=== PATIENT | female | born 1965 | race Caucasian/White ===

== ENCOUNTER 2020-11-13 17:59 | Observation (INO) | payer OTHER, SELFPAY ==
[2020-11-13] VITALS (8 sets, daily range): BP systolic 109–133; BP diastolic 64–80; PULSE 88–107; RESP 13–27; TEMP 36.7–37.6; O2SAT 92–96; BMI 29.2
--- NOTE | ~2020-11-13 | CT_ITS ---
EXAMINATION: CT CHEST WITH CONTRAST CLINICAL INFORMATION: Lung mass COMPARISON: Radiograph from 11/13/2020 TECHNIQUE: Multidetector volumetric CT imaging of the chest was obtained after the administration of 65 mL of Omnipaque 350 intravenous contrast without immediate adverse reactions. Axial MIP volume rendering provided. Sagittal and coronal reformatted images were obtained. This CT examination was performed using dose optimization techniques as appropriate, variously including the following: *Automated exposure control *Adjustment of mA and/or kV according to patient size (this includes techniques or standardized protocols for targeted exams where dose is matched to indication/reason for exam; i.e. 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 LUNGS: The central airways are patent. Mild centrilobular and paraseptal emphysema. There is pleural thickening with pleural calcifications, consistent with plaques along the left hemithorax. No consolidation. No suspicious pulmonary nodule. Bilateral atelectasis at the lung bases. No pleural effusion or pneumothorax. MEDIASTINUM: Normal heart size. Coronary artery calcification. No pericardial effusion. No mediastinal lymphadenopathy. AXILLA: No lymphadenopathy. UPPER ABDOMEN: Cholecystectomy. OSSEOUS STRUCTURES: Degenerative changes throughout the spine with multilevel thoracic vertebral body height loss. CT/CT chest w con IMPRESSION: Calcified and noncalcified pleural plaques, most prominently along the left hemithorax. No parenchymal mass. Mild emphysema.
--- NOTE | ~2020-11-13 | XR_ITS ---
EXAMINATION: XR CHEST CLINICAL INFORMATION: Shortness of breath. COMPARISON: None TECHNIQUE: Frontal view of the chest was obtained. FINDINGS: Asymmetric pleural-based opacity is noted at left mid lung field with asymmetric elevated left hemidiaphragm and mild blunting of the left lateral CP angle, may represent pleural-based disease. No prior studies are available for comparison. Cardiac mediastinal silhouette is within normal limits. Note is made of asymmetric prominence of the left hilar, perihilar region. XR/XR chest 1V IMPRESSION: Abnormal chest radiograph. No prior studies for comparison. Nonspecific pleural-based mass, asymmetric fullness of the left hilum and mild blunting of the left lateral CP angles are present within the left hemithorax, not optimally characterized.
--- NOTE | 2020-11-13 18:55 | ECG_ITS ---
Test Reason : SOB Blood Pressure : / mmHG Vent. Rate : 102 BPM Atrial Rate : 102 BPM P-R Int : 130 ms QRS Dur : 070 ms QT Int : 342 ms P-R-T Axes : 056 031 076 degrees QTc Int : 445 ms Sinus tachycardia Nonspecific T wave abnormality Abnormal ECG No previous ECGs available Referred By: Kristine Villalobos Electronically Signed By:ELIE MALHOTRA
--- NOTE | 2020-11-13 19:01 | ED_ITS ---
HPI - SOB/Dyspnea General Chief Complaint: Dyspnea Stated Complaint: sob Time Seen by Provider: 11/13/20 18:54 Source: patient Mode of arrival: ambulatory Limitations: no limitations History of Present Illness HPI Narrative: 55-year-old female came in for evaluation of shortness of breath. 55-year-old female former smoker known history of COPD came in for evaluation of shortness of breath and tightness in her chest for the past 7 days, patient has been using her bronchodilator at home with no relief for symptoms, patient never been hospitalized or intubated for COPD exacerbation. Patient also been feeling fever, headache, generalized weakness. No photophobia, no neck stiffness. Related Data Home Medications Medication Instructions Recorded Confirmed ProAir HFA 90 mcg PO 11/14/20 Trelegy Ellipta 11/14/20 budesonide-formoterol HFA 160 1 puff PO BID 11/14/20 11/14/20 mcg-4.5 mcg/actuation aerosol inhaler (Symbicort) darifenacin 15 mg tablet,extended mg PO 11/14/20 release 24 hr fluoxetine 20 mg capsule 1 cap PO DAILY 11/14/20 11/14/20 fluoxetine 40 mg capsule 1 cap PO DAILY 11/14/20 11/14/20 fluticasone propionate 50 1 spray INTRANASAL DAILY 11/14/20 11/14/20 mcg/actuation nasal spray,suspension folic acid 1 mg tablet 1 tab PO DAILY 11/14/20 11/14/20 gabapentin 400 mg capsule 1 cap PO TID 11/14/20 11/14/20 hydroxyzine pamoate 50 mg capsule mg PO 11/14/20 ibuprofen 800 mg tablet 1 tab PO Q8H 11/14/20 11/14/20 ipratropium-albuterol PO QID PRN 11/14/20 lorazepam 1 mg tablet 1 mg PO TID 11/14/20 11/14/20 meloxicam 15 mg tablet 1 tab PO DAILY 11/14/20 11/14/20 mirtazapine 45 mg tablet 1 tab PO BEDTIME 11/14/20 11/14/20 nicotine 21 mg/24 hr daily 1 patch TOPICAL DAILY 11/14/20 11/14/20 transdermal patch olanzapine 10 mg tablet 1 tab PO QAM 11/14/20 11/14/20 omeprazole 20 mg capsule,delayed 1 cap PO DAILY 11/14/20 11/14/20 release propranolol 10 mg tablet 1 tab PO BID 11/14/20 11/14/20 tizanidine 4 mg tablet 1 tab PO QID PRN 11/14/20 11/14/20 topiramate 50 mg tablet (Topamax) 1 tab PO DAILY 11/14/20 11/14/20 vitamin B complex-vit B12 11/14/20 Previous Rx's Medication Instructions Recorded doxycycline hyclate 100 mg tablet 100 mg PO Q12H #6 tab 11/16/20 prednisone 10 mg tablet See Rx Instructions .ROUTE 11/16/20 .COMPLEX #20 tab Allergies Allergy/AdvReac Type Severity Reaction Status Date / Time fish derived [fish] Allergy Hives Verified 11/13/20 18:05 Review of Systems Review of Systems: All other systems are reviewed and are negative Constitutional: Reports as per HPI and Reports no additional constitutional complaints Eyes: Reports as per HPI and Reports no additional eye complaints Reports system reviewed and no additional complaints, except as documented Cardiovascular: Reports as per HPI and Reports no additional cardiovascular complaints Respiratory: Reports as per HPI and Reports no additional respiratory complaints Gastrointestinal: Reports as per HPI and Reports no additional gastrointestinal complaints Genitourinary: Reports no additional female genitourinary complaints Musculoskeletal: Reports no additional musculoskeletal complaints Skin/Breast: Reports system reviewed and no additional complaints, except as docu Psychiatric: Reports no additional psychiatric complaints Endocrine: Reports no additional endocrine complaints Hematologic/Lymphatic: Reports no additional hematologic/lymphatic complaints Allergic/Immunologic: Reports no additional allergic/immunologic complaints Reports system reviewed and no additional complaints, except as documented and Reports Abnormal speech present [facility] Past Medical History Medical History (Updated 11/16/20 @ 12:22 by Wilberto Weiss MD) Asthma COPD (chronic obstructive pulmonary disease) 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 Surgical History H/O: hysterectomy History of appendectomy History of cholecystectomy Social History Social History Alcohol intake: former Patient Tobacco Use Status: Former Tobacco user Use of substances other than those prescribed or required for medical reasons: No Currently Displaying Signs/Symptoms of Drug Intoxication Withdrawal: No Advance Directives: No Advance Directives Information Provided: No Do you have thoughts of harming others: None Do you have a plan to hurt others: No Plan service: No Current occupational status: unemployed and disabled Physical Exam Vital Signs: Vital Signs: Last Vital Signs Temp 97.2 F 11/16/20 08:00 Pulse 85 11/16/20 10:13 Resp 19 11/16/20 08:00 BP 191/92 H 11/16/20 08:23 Pulse Ox 98 11/16/20 08:00 Body Mass Index 29.2 Vital signs have been reviewed as appeared to be correct. Blood pressure normal. Heart rate normal. Respiration rate normal. Temperature normal. Oxygen saturation normal. Appearance: Alert. Oriented X3. No acute distress. Head: Normal external exam. Normocephalic. Atraumatic. No Rodriguez signs noted. No raccoon eyes noted Eyes: PERRLA. EOMI. Conjunctiva and sclera normal. Eyelids normal. ENT: TM's Normal. Pharynx normal. Uvula midline. Moist mucous membranes. No trismus noted. No drooling noted. No muffled voice noted. Neck: Normal inspection. Neck supple. FROM. No adenopathy. Thyroid Normal. No meningeal signs. No neck mass noted. CVS: Normal heart rate and rhythm. Heart sound normal. No murmurs noted. Pulses normal throughout. Respiratory: Mildrespiratory distress. Painless inspiration. Breath sounds normal. Diffuse expiratory wheezing with prolonged expiration, patient is able to talk in full sentences, Chest nontender. No accessory muscle usage noted or decreased air movement noted. Abdomen: Soft and nontender. Bowel sounds normal in all 4 quadrants. No distention noted. No organomegaly noted. No visible injury noted. Back: No CVA tenderness. Full range of motion noted. Skin: Skin warm and dry. Normal skin color. Normal skin turgor. No rashes/lesions/lacerations noted. Extremities: No lower extremity edema. Extremities exhibit normal range of motion. Extremities nontender. Neuro: Oriented X 3. Cranial nerve exam: II-XII are grossly intact No motor deficit. No sensory deficit. Reflexes normal. Course Course Course Narrative: 55-year-old female with history of COPD came in with COPD exacerbation, patient initially came in with acute respiratory distress, patient was given bronchodilator and Solu-Medrol and magnesium, patient was covered with 1 dose of Zithromax. Will admit the patient for further bronchodilator therapy. MDM - SOB/Dyspnea Lab Data Attestation: I reviewed the patient's lab results. Result diagrams: 11/15/20 09:28 11/15/20 09:28 Labs: Lab Results 11/13/20 11/13/20 11/13/20 Range/Units 19:20 19:20 19:20 WBC 12.0 H (4.8-10.8) X10*3/uL RBC 3.56 L (4.20-5.50) X10*6/uL Hgb 11.2 L (12.0-16.0) g/dl Hct 31.8 L (37-47) % MCV 89.3 (80-98) fL MCH 31.5 (27.0-33.0) pg MCHC 35.2 H (31.0-35.0) g/dl RDW 13.2 (11.0-16.0) % Plt Count 358 (160-400) X10*3/uL MPV 9.7 (9.4-12.3) fL Immature Gran % (Auto) 1.6 H (0.0-0.4) % Neut % (Auto) 84.1 H (45-73) % Lymph % (Auto) 9.3 L (20-40) % [place] % (Auto) 4.9 (2-11) % Eos % (Auto) 0.0 (0-4) % Baso % (Auto) 0.1 (0-2) % Lymph # (Auto) 1.1 L (1.2-4.9) X10*3/uL [place] # (Auto) 0.6 (0.1-1.2) X10*3/uL Eos # (Auto) 0.0 (0.0-0.4) X10*3/uL Baso # (Auto) 0.0 (0.0-0.2) X10*3/uL Abs Immat Gran (auto) 0.19 H (0.00-0.03) X10*3/uL Absolute Neuts (auto) 10.1 H (2.0-8.3) X10*3/uL Absolute Nucleated RBC 0.000 (0.0-0.012) X10*3/uL Nucleated RBC % (auto) 0.0 (0.0-0.2) /100WBC D-Dimer NG/ML O2 Saturation % ABG pH at Pt Temp (7.35-7.45) ABG pH (Temp Correct) (7.35-7.45) ABG pCO2 at Pt Temp (32-45) mmHg ABG pCO2 (Temp Corrct (32-45) mmHg ABG pO2 at Pt Temp (83-108) mmHg ABG pO2 (Temp Correct (83-108) ABG HCO3 (22-26) mmol/L ABG Base Excess (Actual) mmol/L Sodium 142 (135-145) mmol/L Potassium 4.0 (3.3-5.1) mmol/L Chloride 107 (96-108) mmol/L Carbon Dioxide 24 (22-29) mmol/L Anion Gap 15 (12-20) BUN 16 (9-16) mg/dL Creatinine 0.98 (0.5-1.4) mg/dL Estim Creat Clear Calc 59.1 Estimated GFR 58 Random Glucose 206 H (60-115) mg/dL Lactic Acid (0.5-2.0) mmol/L Lactic Acid Fup @ 2Hr (0.5-2.0) mmol/L Calcium 9.2 (8.4-10.2) mg/dL Total Bilirubin 0.2 (0.0-1.0) mg/dL Direct Bilirubin < 0.2 (0.0-0.5) mg/dL AST 15 (5-31) U/L ALT 21 (0-31) U/L Alkaline Phosphatase 115 (39-117) U/L Troponin I High Sens (<3.5-17.0) ng/L B-Natriuretic Peptide (<100) pg/mL Total Protein 6.6 (6.5-8.0) g/dL Albumin 3.9 (3.5-5.0) g/dL Lipase 48 (8-78) U/L Urine Color Urine Appearance Urine pH (5.0-8.0) Ur Specific [place] (1.005-1.025) Urine Protein (NEG-TRACE) MG/DL Urine Glucose (UA) (NEG) MG/DL Urine Ketones (NEG) MG/DL Urine Blood (NEG) Urine Nitrite (NEG) Ur Leukocyte Esterase (NEG) COVID-19 (LYNDSAY) (Negative) COVID-19 Clin Com 11/13/20 11/13/20 11/13/20 Range/Units 19:20 19:20 19:20 WBC (4.8-10.8) X10*3/uL RBC (4.20-5.50) X10*6/uL Hgb (12.0-16.0) g/dl Hct (37-47) % MCV (80-98) fL MCH (27.0-33.0) pg MCHC (31.0-35.0) g/dl RDW (11.0-16.0) % Plt Count (160-400) X10*3/uL MPV (9.4-12.3) fL Immature Gran % (Auto) (0.0-0.4) % Neut % (Auto) (45-73) % Lymph % (Auto) (20-40) % [place]ois % (Auto) (2-11) % Eos % (Auto) (0-4) % Baso % (Auto) (0-2) % Lymph # (Auto) (1.2-4.9) X10*3/uL [place] # (Auto) (0.1-1.2) X10*3/uL Eos # (Auto) (0.0-0.4) X10*3/uL Baso # (Auto) (0.0-0.2) X10*3/uL Abs Immat Gran (auto) (0.00-0.03) X10*3/uL Absolute Neuts (auto) (2.0-8.3) X10*3/uL Absolute Nucleated RBC (0.0-0.012) X10*3/uL Nucleated RBC % (auto) (0.0-0.2) /100WBC D-Dimer NG/ML O2 Saturation % ABG pH at Pt Temp (7.35-7.45) ABG pH (Temp Correct) (7.35-7.45) ABG pCO2 at Pt Temp (32-45) mmHg ABG pCO2 (Temp Corrct (32-45) mmHg ABG pO2 at Pt Temp (83-108) mmHg ABG pO2 (Temp Correct (83-108) ABG HCO3 (22-26) mmol/L ABG Base Excess (Actual) mmol/L Sodium (135-145) mmol/L Potassium (3.3-5.1) mmol/L Chloride (96-108) mmol/L Carbon Dioxide (22-29) mmol/L Anion Gap (12-20) BUN (9-16) mg/dL Creatinine (0.5-1.4) mg/dL Estim Creat Clear Calc Estimated GFR Random Glucose (60-115) mg/dL Lactic Acid 2.1 H* (0.5-2.0) mmol/L Lactic Acid Fup @ 2Hr (0.5-2.0) mmol/L Calcium (8.4-10.2) mg/dL Total Bilirubin (0.0-1.0) mg/dL Direct Bilirubin (0.0-0.5) mg/dL AST (5-31) U/L ALT (0-31) U/L Alkaline Phosphatase (39-117) U/L Troponin I High Sens < 3.5 (<3.5-17.0) ng/L B-Natriuretic Peptide 16 (<100) pg/mL Total Protein (6.5-8.0) g/dL Albumin (3.5-5.0) g/dL Lipase (8-78) U/L Urine Color Urine Appearance Urine pH (5.0-8.0) Ur Specific [place] (1.005-1.025) Urine Protein (NEG-TRACE) MG/DL Urine Glucose (UA) (NEG) MG/DL Urine Ketones (NEG) MG/DL Urine Blood (NEG) Urine Nitrite (NEG) Ur Leukocyte Esterase (NEG) COVID-19 (LYNDSAY) Negative (Negative) COVID-19 Clin Com See Note 11/13/20 11/13/20 11/13/20 Range/Units 19:44 20:29 20:53 WBC (4.8-10.8) X10*3/uL RBC (4.20-5.50) X10*6/uL Hgb (12.0-16.0) g/dl Hct (37-47) % MCV (80-98) fL MCH (27.0-33.0) pg MCHC (31.0-35.0) g/dl RDW (11.0-16.0) % Plt Count (160-400) X10*3/uL MPV (9.4-12.3) fL Immature Gran % (Auto) (0.0-0.4) % Neut % (Auto) (45-73) % Lymph % (Auto) (20-40) % [place]ois % (Auto) (2-11) % Eos % (Auto) (0-4) % Baso % (Auto) (0-2) % Lymph # (Auto) (1.2-4.9) X10*3/uL [place] # (Auto) (0.1-1.2) X10*3/uL Eos # (Auto) (0.0-0.4) X10*3/uL Baso # (Auto) (0.0-0.2) X10*3/uL Abs Immat Gran (auto) (0.00-0.03) X10*3/uL Absolute Neuts (auto) (2.0-8.3) X10*3/uL Absolute Nucleated RBC (0.0-0.012) X10*3/uL Nucleated RBC % (auto) (0.0-0.2) /100WBC D-Dimer < 200 NG/ML O2 Saturation 96.0 % ABG pH at Pt Temp 7.44 (7.35-7.45) ABG pH (Temp Correct) 7.43 (7.35-7.45) ABG pCO2 at Pt Temp 36 (32-45) mmHg ABG pCO2 (Temp Corrct 37 (32-45) mmHg ABG pO2 at Pt Temp 84 (83-108) mmHg ABG pO2 (Temp Correct 87 (83-108) ABG HCO3 25 (22-26) mmol/L ABG Base Excess (Actual) 1.4 mmol/L Sodium (135-145) mmol/L Potassium (3.3-5.1) mmol/L Chloride (96-108) mmol/L Carbon Dioxide (22-29) mmol/L Anion Gap (12-20) BUN (9-16) mg/dL Creatinine (0.5-1.4) mg/dL Estim Creat Clear Calc Estimated GFR Random Glucose (60-115) mg/dL Lactic Acid (0.5-2.0) mmol/L Lactic Acid Fup @ 2Hr (0.5-2.0) mmol/L Calcium (8.4-10.2) mg/dL Total Bilirubin (0.0-1.0) mg/dL Direct Bilirubin (0.0-0.5) mg/dL AST (5-31) U/L ALT (0-31) U/L Alkaline Phosphatase (39-117) U/L Troponin I High Sens (<3.5-17.0) ng/L B-Natriuretic Peptide (<100) pg/mL Total Protein (6.5-8.0) g/dL Albumin (3.5-5.0) g/dL Lipase (8-78) U/L Urine Color YELLOW Urine Appearance CLEAR Urine pH 6.0 (5.0-8.0) Ur Specific [place] 1.015 (1.005-1.025) Urine Protein NEG (NEG-TRACE) MG/DL Urine Glucose (UA) NEG (NEG) MG/DL Urine Ketones NEG (NEG) MG/DL Urine Blood NEG (NEG) Urine Nitrite NEG (NEG) Ur Leukocyte Esterase NEG (NEG) COVID-19 (LYNDSAY) (Negative) COVID-19 Clin Com 11/13/20 Range/Units 21:45 WBC (4.8-10.8) X10*3/uL RBC (4.20-5.50) X10*6/uL Hgb (12.0-16.0) g/dl Hct (37-47) % MCV (80-98) fL MCH (27.0-33.0) pg MCHC (31.0-35.0) g/dl RDW (11.0-16.0) % Plt Count (160-400) X10*3/uL MPV (9.4-12.3) fL Immature Gran % (Auto) (0.0-0.4) % Neut % (Auto) (45-73) % Lymph % (Auto) (20-40) % [place] % (Auto) (2-11) % Eos % (Auto) (0-4) % Baso % (Auto) (0-2) % Lymph # (Auto) (1.2-4.9) X10*3/uL [place] # (Auto) (0.1-1.2) X10*3/uL Eos # (Auto) (0.0-0.4) X10*3/uL Baso # (Auto) (0.0-0.2) X10*3/uL Abs Immat Gran (auto) (0.00-0.03) X10*3/uL Absolute Neuts (auto) (2.0-8.3) X10*3/uL Absolute Nucleated RBC (0.0-0.012) X10*3/uL Nucleated RBC % (auto) (0.0-0.2) /100WBC D-Dimer NG/ML O2 Saturation % ABG pH at Pt Temp (7.35-7.45) ABG pH (Temp Correct) (7.35-7.45) ABG pCO2 at Pt Temp (32-45) mmHg ABG pCO2 (Temp Corrct (32-45) mmHg ABG pO2 at Pt Temp (83-108) mmHg ABG pO2 (Temp Correct (83-108) ABG HCO3 (22-26) mmol/L ABG Base Excess (Actual) mmol/L Sodium (135-145) mmol/L Potassium (3.3-5.1) mmol/L Chloride (96-108) mmol/L Carbon Dioxide (22-29) mmol/L Anion Gap (12-20) BUN (9-16) mg/dL Creatinine (0.5-1.4) mg/dL Estim Creat Clear Calc Estimated GFR Random Glucose (60-115) mg/dL Lactic Acid (0.5-2.0) mmol/L Lactic Acid Fup @ 2Hr 2.2 H* (0.5-2.0) mmol/L Calcium (8.4-10.2) mg/dL Total Bilirubin (0.0-1.0) mg/dL Direct Bilirubin (0.0-0.5) mg/dL AST (5-31) U/L ALT (0-31) U/L Alkaline Phosphatase (39-117) U/L Troponin I High Sens (<3.5-17.0) ng/L B-Natriuretic Peptide (<100) pg/mL Total Protein (6.5-8.0) g/dL Albumin (3.5-5.0) g/dL Lipase (8-78) U/L Urine Color Urine Appearance Urine pH (5.0-8.0) Ur Specific [place] (1.005-1.025) Urine Protein (NEG-TRACE) MG/DL Urine Glucose (UA) (NEG) MG/DL Urine Ketones (NEG) MG/DL Urine Blood (NEG) Urine Nitrite (NEG) Ur Leukocyte Esterase (NEG) COVID-19 (LYNDSAY) (Negative) COVID-19 Clin Com ABG Data Attestation: I personally reviewed and interpreted this ABG as follows: Imaging Data Chest x-ray: Radiologist's impression: Abnormal chest radiograph. No prior studies for comparison. Nonspecific pleural-based mass, asymmetric fullness of the left hilum and mild blunting of the left lateral CP angles are present within the left hemithorax, not optimally characterized. ? ECG Data Interpretation: Sinus tachycardia at 102 beats per minute, normal axis deviation, normal intervals, no ST-T changes. Discharge Plan Discharge Clinical Impression: Acute exacerbation of chronic obstructive airways disease Patient Disposition: Admitted As Inpatient Interventions: Admission Worksheet (ED) Last Done: 11/14/20 03:08 Discharge Date/Time: 11/14/20 03:00
[2020-11-13] MEDS: Albuterol Sulfate (0.083%) 2.5 MG/3 ML VIAL.NEB 5 MG INHALE (19:27)
[2020-11-13] MEDS: Albuterol/Iprat 2.5/0.5MG 3 ML AMPUL.NEB INHALE (19:27)
[2020-11-13 19:32] LABS: MANUAL DIFF FLAG NO
[2020-11-13] MEDS: methylPREDNISolone Sod Succ 125 MG/2 ML VIAL IVPUSH (19:32)
[2020-11-13] MEDS: Magnesium Sulfate/H2O 2 GM/50 ML PIGGYBACK IV (19:32)
[2020-11-13 19:40] LABS: Basophils Percent Auto 0.1 % (0-2); Hematocrit 31.8 % (37-47); Hemoglobin 11.2 g/dl (12.0-16.0); Imm Gran Abs Auto 0.19 X10*3/uL (0.00-0.03); Imm Gran Pct Auto 1.6 % (0.0-0.4); Lymphocytes Absolute Auto 1.1 X10*3/uL (1.2-4.9); Lymphocytes Percent Auto 9.3 % (20-40); Mean Corpuscular HGB Conc 35.2 g/dl (31.0-35.0); Mean Corpuscular Hemoglobin 31.5 pg (27.0-33.0); Mean Corpuscular Volume 89.3 fL (80-98); Mean Platelet Volume 9.7 fL (9.4-12.3); Monocytes Absolute Auto 0.6 X10*3/uL (0.1-1.2); Monocytes Percent Auto 4.9 % (2-11); Neutrophils Absolute Auto 10.1 X10*3/uL (2.0-8.3); Neutrophils Percent Auto 84.1 % (45-73); Platelet Count 358 X10*3/uL (160-400); Red Blood Count 3.56 X10*6/uL (4.20-5.50); Red Cell Distribution Width 13.2 % (11.0-16.0)
[2020-11-13 19:48] LABS: ABG Refer to POC result
[2020-11-13 19:50] LABS: ABG Base Excess 1.4 mmol/L; ABG HCO3 25 mmol/L (22-26); ABG pCO2 36 mmHg (32-45); ABG pCO2 TC 37 mmHg (32-45); ABG pH 7.44 (7.35-7.45); ABG pH TC 7.43 (7.35-7.45); ABG pO2 84 mmHg (83-108); ABG pO2 TC 87 (83-108)
[2020-11-13 19:50] LABS: COVID-19 Test Negative (Negative); IDNOW Serial# 9DD0AD1C
[2020-11-13 20:01] LABS: Lactic Acid 2.1 mmol/L (0.5-2.0)
[2020-11-13 20:12] LABS: Anion Gap 15 (12-20); Blood Urea Nitrogen 16 mg/dL (9-16); Calcium 9.2 mg/dL (8.4-10.2); Carbon Dioxide 24 mmol/L (22-29); Chloride 107 mmol/L (96-108); Creatinine Clr Calc Pharmacy 59.1; Estimated Glomerular Filt Rate 58; Glucose Random 206 mg/dL (60-115); Sodium 142 mmol/L (135-145)
[2020-11-13 20:15] LABS: Alanine Aminotransferase 21 U/L (0-31); Albumin Level 3.9 g/dL (3.5-5.0); Alkaline Phosphatase 115 U/L (39-117); Aspartate Amino Transferase 15 U/L (5-31); Bilirubin Direct < 0.2 mg/dL (0.0-0.5); Bilirubin Total 0.2 mg/dL (0.0-1.0); Lipase 48 U/L (8-78); Total Protein 6.6 g/dL (6.5-8.0)
[2020-11-13 20:18] LABS: B Type Natriuretic Peptide 16 pg/mL (<100); Troponin-I High Sensitivity < 3.5 ng/L (<3.5-17.0)
[2020-11-13 20:44] LABS: D Dimer < 200 NG/ML
[2020-11-13] MEDS: Acetaminophen 325 MG TABLET 650 MG PO (20:54)
[2020-11-13 21:02] LABS: Appearance Urine CLEAR; Color Urine YELLOW; Glucose Urine UA NEG (NEG); Leukocyte Esterase Urine NEG (NEG); Nitrite Urine NEG (NEG); Specific Gravity - Urine 1.015 (1.005-1.025); Urine Blood NEG (NEG); Urine Ketones NEG (NEG); Urine Protein NEG (NEG-TRACE)
[2020-11-13 21:27] LABS: Reflex Lactate? Lactic Acid Added
[2020-11-13] MEDS: Azithromycin 500 MG in 0.9 % Sodium Chloride 250 ML 125 MG IV (21:33)
[2020-11-13] MEDS: 0.9 % Sodium Chloride 1,000 ML 999 ML IVCONT (21:35)
--- NOTE | 2020-11-13 21:38 | PC.NURSE ---
Plan to admit pt to the floor, she is aware of this. resting in bed. Abx started.
[2020-11-13 22:12] LABS: ~Lactic Acid-LAB USE ONLY 2.2 mmol/L (0.5-2.0)
--- NOTE | 2020-11-13 22:48 | PM.IMHP ---
History of Present Illness Date of Service: 11/13/20 Chief Complaint: Shortness of breath 55-year-old female with history of asthma and COPD, normally on room air, who presented with shortness of breath and wheezing. History is from the patient and from ED notes. Patient endorsed that for the past 7 days, she has been dealing with worsening shortness of breath, wheezing, coughing fits which produced chest pain, headache, and times were her eyes ?blank out . She has been using her nebulizers, but it does not seem to be getting better. She called her primary care physician, who just endorse that she should continue using her nebulizers. She has been having lack of sleep because of breathing issues. Otherwise, she denies fever, chills, nausea, vomiting, abdominal pain or diarrhea. Subsequently, she came to the ED. In the ED, vital signs were significant for tachypnea with a respiratory rate of 27, and a heart rate as high as 107, otherwise she was satting well on room air. Pertinent labs include leukocytosis with a WBC of 12.0, lactic acid at 2.1, random glucose 206. Her COVID was negative, and an ABG was normal. Chest x-ray revealed the following: Abnormal chest radiograph, no prior studies for comparison, nonspecific pleural base mass, asymmetric fullness of the left hilum and mild blunting of the left lateral costophrenic angles are present within the left hemithorax, not optimally characterized. In the ED, the patient received Solu-Medrol, magnesium sulfate, and DuoNebs. She is being admitted for the following: COPD exacerbation, respiratory distress, lactic acidosis, leukocytosis, abnormal chest x-ray with pleural based mass. Review of Systems Constitutional: Constitutional: Denies chills, Denies fatigue, Denies fever(s), Reports headache(s), Denies weakness and Denies weight loss Eyes: Eyes: Denies blurry vision, Denies change in vision, Denies diplopia and Denies loss of vision ENT: Denies dysphagia, Denies vertigo, Denies dizziness, Reports headache(s), Denies hearing loss, Denies lip swelling and Denies sore throat Cardiovascular: Cardiovascular: Reports chest pain (From coughing), Denies leg edema, Denies lightheadedness, Denies palpitations and Reports dyspnea Respiratory: Respiratory: Reports cough, Reports dyspnea and Reports wheezing Gastrointestinal: Gastrointestinal: Denies coffee ground emesis, Denies constipation, Denies dysphagia, Denies diarrhea, Denies nausea and Denies vomiting Genitourinary: Genitourinary: Denies dysuria Musculoskeletal: Musculoskeletal: Denies arthralgias, Denies muscle weakness, Denies numbness and Denies tingling Integumentary/Breasts: Skin/Breast: Denies bleeding lesions, Denies new lesions and Denies rash Neurologic: Denies vertigo, Denies dizziness, Reports headache(s), Denies loss of vision, Denies numbness, Denies tingling and Denies weakness Psychiatric: Psychiatric: Denies anxiety and Denies depression Endocrine: Endocrine: Denies cold intolerance, Denies fatigue, Denies heat intolerance and Denies palpitations Hematologic/Lymphatic: Hematologic/Lymphatic: Denies easy bleeding, Denies easy bruising and Denies lymphadenopathy Allergic/Immunologic: Allergic/Immunologic: Denies lip swelling and Reports wheezing [facility] Medical History (Updated 11/13/20 @ 23:01 by Hitesh Wood MD) Asthma COPD (chronic obstructive pulmonary disease) Pertinent family history: In mother and father were both healthy, no chronic medical conditions Surgical History H/O: hysterectomy History of appendectomy History of cholecystectomy Social History Alcohol intake: former Patient Tobacco Use Status: Former Tobacco user Use of substances other than those prescribed or required for medical reasons: No Advance Directives: No Advance Directives Information Provided: No Meds Allergies Allergy/AdvReac Type Severity Reaction Status Date / Time fish derived [fish] Allergy Hives Verified 11/13/20 18:05 Active Medications: Current Medications Generic Name Dose Route Start Last Admin Trade Name Freq PRN Reason Stop Dose Admin Acetaminophen 650 mg 11/13/20 22:44 Acetaminophen 325 Mg Tablet PO Q6H PRN Pain, Mild (Pain Scale 1-3) Azithromycin 500 mg/ Sodium 250 mls @ 125 mls/hr 11/13/20 21:13 11/13/20 21:33 Chloride IV 11/13/20 23:12 125 mls/hr ONCE ONE Administration Ceftriaxone Sodium 1 gm/ 50 mls @ 100 mls/hr 11/13/20 22:27 Sodium Chloride IV 11/13/20 22:56 ONCE ONE Methylprednisolone Sodium Succinate 60 mg 11/14/20 08:00 Methylprednisolone Sod Succ 125 Mg/2 Ml Vial IVPUSH Q6H [facility] Sodium Chloride 3 ml 11/14/20 00:00 0.9 % Sodium Chloride Flush 3 Ml Syringe IVFLUSH QSHIFT MARTINEZ Physical Exam Vital Signs and Narrative: Vital Signs: Last Vital Signs Temp 98.3 F 11/13/20 22:37 Pulse 88 11/13/20 22:37 Resp 13 11/13/20 22:37 BP 116/64 11/13/20 20:20 Pulse Ox 95 11/13/20 22:37 Body Mass Index 29.2 Const: General: well developed, alert and other (In mild respiratory distress) HENMT: Face and sinus: Yes normal facial exam and Yes face symmetric Mouth: Normal oral and palatal mucosa present and moist mucous membranes Throat: Yes posterior oropharynx normal and Yes tonsils normal Eyes: General: appearance normal, both eyes and all related structures Alignment and Position: alignment normal and position normal Sclerae: sclerae normal Pupils: Equal, round and reactive pupils present EOM: EOMs intact bilaterally Neck: Yes normal visual inspection, Yes full ROM and Yes no lymphadenopathy Lymphatic: no lymphadenopathy noted Resp: Effort & Inspection: not able to speak in complete sentences, audible wheezes, labored and respiratory distress Auscultation: no crackles, no rales, no rhonchi and wheezes (Marked) Cardio: Rate: regular rate Rhythm: regular rhythm Heart sounds: S1 normal heart sound present, S2 normal heart sound present, no murmurs and no rubs GI: Inspection: No distended Palpation (GI): Soft to palpation and nontender Percussion: No tympanic to percussion Auscultation: normal bowel sounds Skin: Rashes: no rashes Trauma: no lacerations or abrasions Wounds: no wounds Neuro: Cranial nerves: Yes CN's II-XII intact bilaterally, Yes Equal, round and reactive pupils present and Yes Bilaterally intact EOM present Extrem: General: Yes full ROM and Yes no pedal edema Psych: Appearance: grossly normal Mental Status: mental status grossly normal Speech and movement: Normal speech and movement present Affect: normal affect Thought process: Normal thought process present Results Labs CBC and Chem 7: 11/13/20 19:20 08/21/21 19:20 Labs: Laboratory Results - last 24 hr 11/13/20 11/13/20 11/13/20 19:20 19:20 19:20 MCV 89.3 MCH 31.5 MCHC 35.2 H RDW 13.2 Plt Count 358 MPV 9.7 Immature Gran % (Auto) 1.6 H Neut % (Auto) 84.1 H Lymph % (Auto) 9.3 L [place] % (Auto) 4.9 Eos % (Auto) 0.0 Baso % (Auto) 0.1 Lymph # (Auto) 1.1 L [place] # (Auto) 0.6 Eos # (Auto) 0.0 Baso # (Auto) 0.0 Abs Immat Gran (auto) 0.19 H Absolute Neuts (auto) 10.1 H Absolute Nucleated RBC 0.000 Nucleated RBC % (auto) 0.0 D-Dimer O2 Saturation ABG pH at Pt Temp ABG pH (Temp Correct) ABG pCO2 at Pt Temp ABG pCO2 (Temp Corrct ABG pO2 at Pt Temp ABG pO2 (Temp Correct ABG HCO3 ABG Base Excess (Actual) Anion Gap 15 Estim Creat Clear Calc 59.1 Estimated GFR 58 Random Glucose 206 H Lactic Acid Lactic Acid Fup @ 2Hr Calcium 9.2 Total Bilirubin 0.2 Direct Bilirubin < 0.2 AST 15 ALT 21 Alkaline Phosphatase 115 Troponin I High Sens B-Natriuretic Peptide Total Protein 6.6 Albumin 3.9 Lipase 48 Urine Color Urine Appearance Urine pH Ur Specific [place] Urine Protein Urine Glucose (UA) Urine Ketones Urine Blood Urine Nitrite Ur Leukocyte Esterase COVID-19 (LYNDSAY) COVID-19 Clin Com 11/13/20 11/13/20 11/13/20 19:20 19:20 19:20 MCV MCH MCHC RDW Plt Count MPV Immature Gran % (Auto) Neut % (Auto) Lymph % (Auto) [place] % (Auto) Eos % (Auto) Baso % (Auto) Lymph # (Auto) [place] # (Auto) Eos # (Auto) Baso # (Auto) Abs Immat Gran (auto) Absolute Neuts (auto) Absolute Nucleated RBC Nucleated RBC % (auto) D-Dimer O2 Saturation ABG pH at Pt Temp ABG pH (Temp Correct) ABG pCO2 at Pt Temp ABG pCO2 (Temp Corrct ABG pO2 at Pt Temp ABG pO2 (Temp Correct ABG HCO3 ABG Base Excess (Actual) Anion Gap Estim Creat Clear Calc Estimated GFR Random Glucose Lactic Acid 2.1 H* Lactic Acid Fup @ 2Hr Calcium Total Bilirubin Direct Bilirubin AST ALT Alkaline Phosphatase Troponin I High Sens < 3.5 B-Natriuretic Peptide 16 Total Protein Albumin Lipase Urine Color Urine Appearance Urine pH Ur Specific [place] Urine Protein Urine Glucose (UA) Urine Ketones Urine Blood Urine Nitrite Ur Leukocyte Esterase COVID-19 (LYNDSAY) Negative COVID-19 Clin Com See Note 11/13/20 11/13/20 11/13/20 19:44 20:29 20:53 MCV MCH MCHC RDW Plt Count MPV Immature Gran % (Auto) Neut % (Auto) Lymph % (Auto) [place] % (Auto) Eos % (Auto) Baso % (Auto) Lymph # (Auto) [place] # (Auto) Eos # (Auto) Baso # (Auto) Abs Immat Gran (auto) Absolute Neuts (auto) Absolute Nucleated RBC Nucleated RBC % (auto) D-Dimer < 200 O2 Saturation 96.0 ABG pH at Pt Temp 7.44 ABG pH (Temp Correct) 7.43 ABG pCO2 at Pt Temp 36 ABG pCO2 (Temp Corrct 37 ABG pO2 at Pt Temp 84 ABG pO2 (Temp Correct 87 ABG HCO3 25 ABG Base Excess (Actual) 1.4 Anion Gap Estim Creat Clear Calc Estimated GFR Random Glucose Lactic Acid Lactic Acid Fup @ 2Hr Calcium Total Bilirubin Direct Bilirubin AST ALT Alkaline Phosphatase Troponin I High Sens B-Natriuretic Peptide Total Protein Albumin Lipase Urine Color YELLOW Urine Appearance CLEAR Urine pH 6.0 Ur Specific [place] 1.015 Urine Protein NEG Urine Glucose (UA) NEG Urine Ketones NEG Urine Blood NEG Urine Nitrite NEG Ur Leukocyte Esterase NEG COVID-19 ([facility]NDSAY) COVID-19 Clin Com 11/13/20 21:45 MCV MCH MCHC RDW Plt Count MPV Immature Gran % (Auto) Neut % (Auto) Lymph % (Auto) [place] % (Auto) Eos % (Auto) Baso % (Auto) Lymph # (Auto) [place] # (Auto) Eos # (Auto) Baso # (Auto) Abs Immat Gran (auto) Absolute Neuts (auto) Absolute Nucleated RBC Nucleated RBC % (auto) D-Dimer O2 Saturation ABG pH at Pt Temp ABG pH (Temp Correct) ABG pCO2 at Pt Temp ABG pCO2 (Temp Corrct ABG pO2 at Pt Temp ABG pO2 (Temp Correct ABG HCO3 ABG Base Excess (Actual) Anion Gap Estim Creat Clear Calc Estimated GFR Random Glucose Lactic Acid Lactic Acid Fup @ 2Hr 2.2 H* Calcium Total Bilirubin Direct Bilirubin AST ALT Alkaline Phosphatase Troponin I High Sens B-Natriuretic Peptide Total Protein Albumin Lipase Urine Color Urine Appearance Urine pH Ur Specific [place] Urine Protein Urine Glucose (UA) Urine Ketones Urine Blood Urine Nitrite Ur Leukocyte Esterase COVID-19 ([facility]NDSAY) COVID-19 Clin Com Imaging Radiologist's Impressions: Impressions Chest X-Ray 11/13/20 18:55 IMPRESSION: Abnormal chest radiograph. No prior studies for comparison. Nonspecific pleural-based mass, asymmetric fullness of the left hilum and mild blunting of the left lateral CP angles are present within the left hemithorax, not optimally characterized. Assessment and Plan (1) Acute exacerbation of chronic obstructive airways disease: Status: Acute (2) Lung mass: Status: Acute (3) Asthma: Status: Acute (4) Leukocytosis: Status: Acute (5) Lactic acidosis: Status: Acute (6) Hyperglycemia: Status: Acute COPD exacerbation: -continue IV Solu-Medrol, scheduled and p.r.n. DuoNebs -patient currently maintaining her O2 sats on room air, however, she is in respiratory distress, agree with admitting to observation to make sure she is stable -patient denies having to be hospitalized for COPD exacerbations in the past, therefore am not sure how long it will take her to show improvements -Started IV doxycyline Lung mass: -Chest x-ray did show evidence of pleural base mass -ordered CT of the chest with contrast -morning team to consider pulmonology consult if CT does show mass Asthma: -treatment as per above Leukocytosis: -likely secondary to COPD exacerbation and steroids as per above -Started IV Doxycycline Lactic acidosis: -likely secondary to albuterol treatments -Will give NS at 100 cc/hr x 1 L total overnight -repeat lactic acid level in the morning Hyperglycemia: -possibly secondary to steroids -I did not start the patient on any insulin sliding scale for blood sugar checks, but defer blood sugar continues to rise in the morning, morning team can order these FEN: Cardiac diet CODE STATUS: FULL CODE DISPO: Admit to Observation Quality Stroke Does the patient have a stroke diagnosis?: No VTE Prior VTE?: No VTE Risk Level:: Medical - low VTE Device Contraindication: N/A - Device Ordered VTE Drug Contraindication: Treatment Not Indicated
[2020-11-13 23:47] LABS: Reflex Lactate? 2 Y
[2020-11-13] MEDS: cefTRIAXone sodium 1 GM in 0.9 % Sodium Chloride 50 ML IV (23:51)
[2020-11-14] VITALS (13 sets, daily range): BP systolic 135–174; BP diastolic 60–88; PULSE 68–95; RESP 16–20; TEMP 36.1–37.4; O2SAT 92–99; BMI 31.7
--- NOTE | 2020-11-14 00:05 | PC.NURSE ---
Pt noted to have license, insurance card and social security card sitting out on bedside table. This RN attempted to ask the patient where she normally keeps these items but member was mumbling due to be half asleep and this RN placed all three items in the patient's small bag with her crayons/markers. Pt's extension cord, phone conveyor line battery charger and block were placed in her backpack in addition to a clip board and blue accordion style folder with different documents/notes inside.
[2020-11-14 00:35] LABS: ~Lactic Acid-LAB USE ONLY 1.8 mmol/L (0.5-2.0)
[2020-11-14] MEDS: 0.9 % Sodium Chloride 1,000 ML 100 ML IV (00:56)
[2020-11-14] MEDS: Doxycycline Hyclate 100 MG in 0.9 % Sodium Chloride 250 ML 166.67 MG IV ×2 (00:57→12:12)
[2020-11-14] MEDS: iohexoL 350 MG/ML 100 ML INFUS..BTL 65 ML IV (02:16)
[2020-11-14] MEDS: Pantoprazole Sodium 40 MG/10 ML VIAL IVPUSH ×2 (05:54→16:29)
[2020-11-14 06:13] LABS: Lactic Acid 1.9 mmol/L (0.5-2.0)
[2020-11-14 06:26] LABS: MANUAL DIFF FLAG NO
[2020-11-14 06:35] LABS: Basophils Percent Auto 0.2 % (0-2); Hemoglobin 10.6 g/dl (12.0-16.0); Imm Gran Abs Auto 0.35 X10*3/uL (0.00-0.03); Imm Gran Pct Auto 2.6 % (0.0-0.4); Lymphocytes Absolute Auto 1.1 X10*3/uL (1.2-4.9); Lymphocytes Percent Auto 8.1 % (20-40); Mean Corpuscular HGB Conc 33.1 g/dl (31.0-35.0); Mean Corpuscular Hemoglobin 29.8 pg (27.0-33.0); Mean Corpuscular Volume 89.9 fL (80-98); Mean Platelet Volume 9.9 fL (9.4-12.3); Monocytes Absolute Auto 0.3 X10*3/uL (0.1-1.2); Monocytes Percent Auto 2.3 % (2-11); Neutrophils Absolute Auto 11.5 X10*3/uL (2.0-8.3); Neutrophils Percent Auto 86.8 % (45-73); Platelet Count 346 X10*3/uL (160-400); Red Blood Count 3.56 X10*6/uL (4.20-5.50); White Blood Count 13.3 X10*3/uL (4.8-10.8)
[2020-11-14 07:26] LABS: Anion Gap 12 (12-20); Blood Urea Nitrogen 13 mg/dL (9-16); Calcium 8.3 mg/dL (8.4-10.2); Carbon Dioxide 23 mmol/L (22-29); Chloride 109 mmol/L (96-108); Creatinine Clr Calc Pharmacy 88.7; Estimated Glomerular Filt Rate > 60; Glucose Random 140 mg/dL (60-115); Potassium 4.3 mmol/L (3.3-5.1); Sodium 140 mmol/L (135-145)
[2020-11-14] MEDS: methylPREDNISolone Sod Succ 40 MG/ML VIAL 60 MG IVPUSH ×3 (07:38→19:53)
[2020-11-14] MEDS: Albuterol/Iprat 2.5/0.5MG 3 ML AMPUL.NEB INHALE ×2 (09:31→16:57)
--- NOTE | 2020-11-14 11:11 | MHC.CM.PN ---
Patient states she lives in a recovery house. Owns a cane. Given her medical conditions, the recovery house provides transportation to her medical appointments for her. No prior nursing services, does not drive. At time of D/C, the recovery house will come to pick her up. CM to follow.
[2020-11-14] MEDS: 0.9 % Sodium Chloride Flush 3 ML SYRINGE IVFLUSH ×2 (15:31→19:55)
[2020-11-14] MEDS: Acetaminophen 325 MG TABLET 650 MG PO (16:22)
[2020-11-15] VITALS (10 sets, daily range): BP systolic 112–186; BP diastolic 66–98; PULSE 75–98; RESP 16–20; TEMP 36.2–37.1; O2SAT 94–99
[2020-11-15] MEDS: Doxycycline Hyclate 100 MG in 0.9 % Sodium Chloride 250 ML 166.67 MG IV ×2 (00:55→11:00)
[2020-11-15] MEDS: methylPREDNISolone Sod Succ 40 MG/ML VIAL 60 MG IVPUSH (00:55)
[2020-11-15] MEDS: LORazepam 1 MG TABLET PO ×4 (01:53→22:42)
[2020-11-15] MEDS: Mirtazapine 15 MG TABLET 45 MG PO ×2 (01:53→22:42)
[2020-11-15] MEDS: Acetaminophen 325 MG TABLET 650 MG PO (01:55)
[2020-11-15] MEDS: Pantoprazole Sodium 40 MG/10 ML VIAL IVPUSH ×2 (06:07→16:57)
[2020-11-15] MEDS: 0.9 % Sodium Chloride Flush 3 ML SYRINGE IVFLUSH ×2 (09:32→16:57)
[2020-11-15] MEDS: methylPREDNISolone Sod Succ 40 MG/ML VIAL IVPUSH ×2 (09:32→18:21)
[2020-11-15] MEDS: Topiramate 25 MG TABLET 50 MG PO (09:33)
[2020-11-15] MEDS: Propranolol HCL 10 MG TABLET PO ×2 (09:33→22:44)
[2020-11-15] MEDS: FLUoxetine HCl 20 MG CAPSULE PO (09:33)
[2020-11-15] MEDS: Folic Acid 1 MG TABLET PO (09:33)
[2020-11-15] MEDS: Omeprazole 20 MG CAPSULE.DR PO (09:33)
[2020-11-15] MEDS: OLANZapine 10 MG TABLET PO (09:33)
[2020-11-15] MEDS: Gabapentin 400 MG CAPSULE PO ×3 (09:33→22:42)
[2020-11-15] MEDS: FLUoxetine HCl 20 MG CAPSULE 40 MG PO (09:33)
[2020-11-15 09:49] LABS: Hematocrit 37.4 % (37-47); Hemoglobin 12.4 g/dl (12.0-16.0); Mean Corpuscular HGB Conc 33.2 g/dl (31.0-35.0); Mean Corpuscular Volume 90.3 fL (80-98); Mean Platelet Volume 9.7 fL (9.4-12.3); Platelet Count 400 X10*3/uL (160-400); Red Blood Count 4.14 X10*6/uL (4.20-5.50); Red Cell Distribution Width 13.2 % (11.0-16.0); White Blood Count 19.1 X10*3/uL (4.8-10.8)
[2020-11-15 10:26] LABS: Anion Gap 15 (12-20); Blood Urea Nitrogen 15 mg/dL (9-16); Calcium 9.7 mg/dL (8.4-10.2); Carbon Dioxide 24 mmol/L (22-29); Chloride 105 mmol/L (96-108); Creatinine Clr Calc Pharmacy 83.7; Estimated Glomerular Filt Rate > 60; Glucose Random 173 mg/dL (60-115); Potassium 4.8 mmol/L (3.3-5.1); Sodium 139 mmol/L (135-145)
[2020-11-15 10:27] LABS: Estimated Average Glucose 100 mg/dL; Hemoglobin A1c % 5.1 %
--- NOTE | 2020-11-15 17:36 | HO.PM.IMPN ---
Subjective Subjective Date of Service: 11/15/20 Interval History: c/o ongoing dyspnea and wheezing no fever Review of Systems Review of Systems: Yes all other systems are reviewed and are negative Physical Exam Vital Signs: Vital Signs: Last Vital Signs Temp 98 F 11/15/20 15:34 Pulse 78 11/15/20 15:34 Resp 18 11/15/20 15:34 BP 144/84 H 11/15/20 15:34 Pulse Ox 97 11/15/20 15:34 Body Mass Index 31.7 Gen: short of breath HEENT: sclera anicteric, moist mucus membranes Neck: supple Lungs: extensive bilateral inspiratory and expiratory wheezing Heart: regular rate and rhythm, no murmurs Abd: soft, non-tender, non-distended Ext: no edema Skin: warm/well-perfused Neuro: alert and oriented x3, no focal findings Psych: appropriate affect Objective Data Current Medications Generic Name Dose Route Start Last Admin Trade Name Freq PRN Reason Stop Dose Admin Acetaminophen 650 mg 11/13/20 22:44 11/15/20 01:55 Acetaminophen 325 Mg Tablet PO 650 mg Q6H PRN Administration Pain, Mild (Pain Scale 1-3) Albuterol/Ipratropium 3 ml 11/14/20 08:00 11/15/20 14:43 Albuterol/Iprat 2.5/0.5mg 3 Ml Ampul.Neb INHALE Not Given RQ6H WHILE AWAKE MARTINEZ Albuterol/Ipratropium 3 ml 11/13/20 22:45 Albuterol/Iprat 2.5/0.5mg 3 Ml Ampul.Neb INHALE Q4H PRN Shortness of Breath/Wheezing Fluoxetine HCl 20 mg 11/15/20 09:00 11/15/20 09:33 Fluoxetine Hcl 20 Mg Capsule PO 20 mg DAILY MARTINEZ Administration Fluoxetine HCl 40 mg 11/15/20 09:00 11/15/20 09:33 Fluoxetine Hcl 20 Mg Capsule PO 40 mg DAILY MARTINEZ Administration Fluticasone Propionate 1 spray 11/15/20 09:00 11/15/20 09:32 Fluticasone Propionate Nasal 16 Gm [place] NOSTRIL-B Not Given DAILY MARTINEZ Fluticasone/Vilanterol 1 puff 11/15/20 09:00 11/15/20 07:37 Fluticasone/Vilanterol 200/25 Blst.W.Dev INHALE Not Given DAILY MARTINEZ Folic Acid 1 mg 11/15/20 09:00 11/15/20 09:33 Folic Acid 1 Mg Tablet PO 1 mg DAILY MARTINEZ Administration Gabapentin 400 mg 11/15/20 09:00 11/15/20 13:57 Gabapentin 400 Mg Capsule PO 400 mg TID MARTINEZ Administration Doxycycline Hyclate 100 mg/ 250 mls @ 166.67 mls/hr 11/14/20 00:00 11/15/20 12:33 Sodium Chloride IV Infused Q12H MARTINEZ Infusion Lorazepam 1 mg 11/15/20 01:35 11/15/20 13:57 Lorazepam 1 Mg Tablet PO 1 mg TID MARTINEZ Administration Melatonin 15 mg 11/15/20 01:35 11/15/20 02:41 Melatonin 3 Mg Tablet PO Not Given BEDTIME MARTINEZ Methylprednisolone Sodium Succinate 40 mg 11/15/20 10:00 11/15/20 09:32 Methylprednisolone Sod Succ 40 Mg/Ml Vial IVPUSH 40 mg Q8H MARTINEZ Administration Mirtazapine 45 mg 11/15/20 01:35 11/15/20 01:53 Mirtazapine 15 Mg Tablet PO 45 mg BEDTIME MARTINEZ Administration Nicotine 21 mg 11/15/20 09:00 11/15/20 09:33 Nicotine 21 Mg Patch.Td24 TRANSDERMA Not Given DAILY MARTINEZ Olanzapine 10 mg 11/15/20 09:00 11/15/20 09:33 Olanzapine 10 Mg Tablet PO 10 mg DAILY MARTINEZ Administration Omeprazole 20 mg 11/15/20 09:00 11/15/20 09:33 Omeprazole 20 Mg Capsule.Dr PO 20 mg DAILY MARTINEZ Administration Pantoprazole Sodium 40 mg 11/13/20 23:00 11/15/20 16:57 Pantoprazole Sodium 40 Mg/10 Ml Vial IVPUSH 40 mg BID@0630,1630 MARTINEZ Administration Propranolol HCl 10 mg 11/15/20 09:00 11/15/20 09:33 Propranolol Hcl 10 Mg Tablet PO 10 mg BID MARTINEZ Administration Protocol Sodium Chloride 3 ml 11/14/20 00:00 11/15/20 16:57 0.9 % Sodium Chloride Flush 3 Ml Syringe IVFLUSH 3 ml QSHIFT MARTINEZ Administration Tizanidine HCl 4 mg 11/15/20 01:31 Tizanidine Hcl 4 Mg Tablet PO QID PRN Muscle Spasm Topiramate 50 mg 11/15/20 09:00 08/23/21 09:33 Topiramate 25 Mg Tablet PO 50 mg DAILY MARTINEZ Administration Labs CBC & Chem 7: 11/15/20 09:28 11/15/20 09:28 Labs: Laboratory Results - last 24 hr 11/15/20 11/15/20 11/15/20 09:28 09:28 09:28 MCV 90.3 MCH 30.0 MCHC 33.2 RDW 13.2 Plt Count 400 MPV 9.7 Absolute Nucleated RBC 0.000 Nucleated RBC % (auto) 0.0 Anion Gap 15 Estim Creat Clear Calc 83.7 Estimated GFR > 60 Random Glucose 173 H Estimat Average Glucose 100 Hemoglobin A1c % 5.1 Calcium 9.7 D Microbiology Microbiology Results: Microbiology 11/13/20 19:22 Blood Culture - Preliminary Blood - Venous No growth after 24 hours. 11/13/20 19:21 Blood Culture - Preliminary Blood - Venous No growth after 24 hours. Assessment and Plan (1) Acute exacerbation of chronic obstructive airways disease: Status: Acute Assessment and Plan: hospital d#3 55yo F admitted for COPD/asthma overlap exacerbation # COPD/asthma exacerbation without hypoxia - continue steroids- taper - continue nebs - continue ICS/LABA - continue doxycycline - PT eval- ?pulm rehab # lactic acidosis - resolved p IV hydration # leukocytosis - suspect steroid effect # hyperglycemia - A1c 5.1, like was steroid effect # lung mass- not - CT shows calcified pleural plaques # mood disorder - continue lorazepam, fluoxetine, mirtazapine, olanzapine, topiramate # VTE ppx - LMWH Quality Stroke Does the patient have a stroke diagnosis?: No VTE Prior VTE?: No VTE Risk Level:: Medical - low VTE Device Contraindication: N/A - Device Ordered VTE Drug Contraindication: Treatment Not Indicated
[2020-11-15] MEDS: Enoxaparin Sodium 40 MG/0.4 ML SYRINGE SUBCUT (18:20)
[2020-11-15] MEDS: Melatonin 3 MG TABLET 15 MG PO (22:43)
[2020-11-16] VITALS (9 sets, daily range): BP systolic 112–191; BP diastolic 71–92; PULSE 68–88; RESP 18–19; TEMP 36.1–36.3; O2SAT 94–98
[2020-11-16] MEDS: Doxycycline Hyclate 100 MG in 0.9 % Sodium Chloride 250 ML 166.67 MG IV (00:02)
[2020-11-16] MEDS: 0.9 % Sodium Chloride Flush 3 ML SYRINGE IVFLUSH ×2 (00:07→08:23)
[2020-11-16] MEDS: methylPREDNISolone Sod Succ 40 MG/ML VIAL IVPUSH ×2 (04:09→08:23)
[2020-11-16] MEDS: Pantoprazole Sodium 40 MG/10 ML VIAL IVPUSH (06:02)
[2020-11-16] MEDS: Fluticasone Propionate Nasal 16 GM SPRAY 1 SPRAY NOSTRIL-B (08:22)
[2020-11-16] MEDS: Folic Acid 1 MG TABLET PO (08:23)
[2020-11-16] MEDS: Omeprazole 20 MG CAPSULE.DR PO (08:23)
[2020-11-16] MEDS: LORazepam 1 MG TABLET PO (08:23)
[2020-11-16] MEDS: Propranolol HCL 10 MG TABLET PO (08:23)
[2020-11-16] MEDS: Gabapentin 400 MG CAPSULE PO (08:23)
[2020-11-16] MEDS: FLUoxetine HCl 20 MG CAPSULE PO (08:24)
[2020-11-16] MEDS: OLANZapine 10 MG TABLET PO (08:24)
[2020-11-16] MEDS: Topiramate 25 MG TABLET 50 MG PO (08:24)
[2020-11-16] MEDS: FLUoxetine HCl 20 MG CAPSULE 40 MG PO (08:25)
--- NOTE | 2020-11-16 11:34 | MHC.CM.PN ---
Patient has been medically cleared for dc to home today, no services. Patient lives at the [facility] (CM spoke with Patient at bedside, who phoned Belen at [facility] and was told that staff is on their way to pick her up)- CM has informed RN & MD. Patient is aware of and in agreement with the dc plan.
--- NOTE | 2020-11-16 12:20 | PM.DS ---
DS: Providers Provider Date of Service: 11/16/20 Date of admission: 11/13/20 22:44 Date of discharge: 11/16/20 Primary care physician: KOFFI Melara DS: Diagnosis Discharge Diagnosis (1) Acute exacerbation of chronic obstructive airways disease: Status: Acute (2) Asthma-COPD overlap syndrome: Status: Acute (3) Asthma exacerbation: Status: Acute (4) Pleural plaque: Status: Acute (5) Lactic acidosis: Status: Acute DS: Medications Discharge Medications Home Medications: Home Medications Medication Instructions Recorded Confirmed ProAir HFA 90 mcg PO 11/14/20 Trelegy Ellipta 11/14/20 budesonide-formoterol HFA 160 1 puff PO BID 11/14/20 11/14/20 mcg-4.5 mcg/actuation aerosol inhaler (Symbicort) darifenacin 15 mg tablet,extended mg PO 11/14/20 release 24 hr fluoxetine 20 mg capsule 1 cap PO DAILY 11/14/20 11/14/20 fluoxetine 40 mg capsule 1 cap PO DAILY 11/14/20 11/14/20 fluticasone propionate 50 1 spray INTRANASAL DAILY 11/14/20 11/14/20 mcg/actuation nasal spray,suspension folic acid 1 mg tablet 1 tab PO DAILY 11/14/20 11/14/20 gabapentin 400 mg capsule 1 cap PO TID 11/14/20 11/14/20 hydroxyzine pamoate 50 mg capsule mg PO 11/14/20 ibuprofen 800 mg tablet 1 tab PO Q8H 11/14/20 11/14/20 ipratropium-albuterol PO QID PRN 11/14/20 lorazepam 1 mg tablet 1 mg PO TID 11/14/20 11/14/20 meloxicam 15 mg tablet 1 tab PO DAILY 11/14/20 11/14/20 mirtazapine 45 mg tablet 1 tab PO BEDTIME 11/14/20 11/14/20 nicotine 21 mg/24 hr daily 1 patch TOPICAL DAILY 11/14/20 11/14/20 transdermal patch olanzapine 10 mg tablet 1 tab PO QAM 11/14/20 11/14/20 omeprazole 20 mg capsule,delayed 1 cap PO DAILY 11/14/20 11/14/20 release propranolol 10 mg tablet 1 tab PO BID 11/14/20 11/14/20 tizanidine 4 mg tablet 1 tab PO QID PRN 11/14/20 11/14/20 topiramate 50 mg tablet (Topamax) 1 tab PO DAILY 11/14/20 11/14/20 vitamin B complex-vit B12 11/14/20 Previous Rx's Medication Instructions Recorded doxycycline hyclate 100 mg tablet 100 mg PO Q12H #6 tab 11/16/20 prednisone 10 mg tablet See Rx Instructions .ROUTE 11/16/20 .COMPLEX #20 tab DS: Summary Hospital Course Hospital Course: from admission H+P by hospitalist Hitesh Wood MD, 11/13/20: 55-year-old female with history of asthma and COPD, normally on room air, who presented with shortness of breath and wheezing.? History is from the patient and from ED notes. Patient endorsed that for the past 7 days, she has been dealing with worsening shortness of breath, wheezing, coughing fits which produced chest pain, headache, and times were her eyes ?blank out .? She has been using her nebulizers, but it does not seem to be getting better.? She called her primary care physician, who just endorse that she should continue using her nebulizers.? She has been having lack of sleep because of breathing issues.? Otherwise, she denies fever, chills, nausea, vomiting, abdominal pain or diarrhea.? Subsequently, she came to the ED. In the ED, vital signs were significant for tachypnea with a respiratory rate of 27, and a heart rate as high as 107, otherwise she was satting well on room air. Pertinent labs include leukocytosis with a WBC of 12.0, lactic acid at 2.1, random glucose 206. Her COVID was negative, and an ABG was normal. Chest x-ray revealed the following:? Abnormal chest radiograph, no prior studies for comparison, nonspecific pleural base mass, asymmetric fullness of the left hilum and mild blunting of the left lateral costophrenic angles are present within the left hemithorax, not optimally characterized. In the ED, the patient received Solu-Medrol, magnesium sulfate, and DuoNebs.? She is being admitted for the following:? COPD exacerbation, respiratory distress, lactic acidosis, leukocytosis, abnormal chest x-ray with pleural based mass. The patient was admitted to the [facility] and treated with IV glucocorticoid and nebulizer treatments. Doxycycline was also started. COVID-19 testing was negative. She was never hypoxic and did not qualify for home oxygen. Lactic acidosis resolved with IV hydration; she was not septic, and the acidosis was likely due to albuterol. Chest radiography showed pleural mass and asymmetric fullness of the left hilum; but CT showed pleural plaques and no parenchymal mass. Once her respiratory symptoms improved, she was discharged back to her sober living home on a prednisone taper plus doxycycline.. Outpatient referral to pulmonology is recommended. Ongoing smoking cessation is recommended. She should follow up with her PCP in 1 week. Time Spent with Patient Time attestation: Total time spent providing and/or coordinating discharge services: Discharge coordination time: Greater than 30 minutes Quality: Stroke Does the patient have a stroke diagnosis?: No Physical Exam Vital Signs: Vital Signs: Last Vital Signs Temp 97.2 F 11/16/20 08:00 Pulse 85 11/16/20 10:13 Resp 19 11/16/20 08:00 BP 191/92 H 11/16/20 08:23 Pulse Ox 98 11/16/20 08:00 Body Mass Index 31.7 Gen: in no acute distress HEENT: sclera anicteric, moist mucus membranes Neck: supple Lungs: scattered expiratory wheezes Heart: regular rate and rhythm, no murmurs Abd: soft, non-tender, non-distended Ext: no edema Skin: warm/well-perfused Neuro: alert and oriented x3, no focal findings Psych: appropriate affect DS: Data Data Completed and Pending Completed studies during hospitalization [Text1]: Laboratory Results WBC 19.1 X10*3/uL (4.8-10.8) H 11/15/20 09:28 RBC 4.14 X10*6/uL (4.20-5.50) L 11/15/20 09:28 Hgb 12.4 g/dl (12.0-16.0) 11/15/20 09:28 Hct 37.4 % (37-47) 11/15/20 09:28 MCV 90.3 fL (80-98) 11/15/20 09:28 MCH 30.0 pg (27.0-33.0) 11/15/20 09:28 MCHC 33.2 g/dl (31.0-35.0) 11/15/20 09:28 RDW 13.2 % (11.0-16.0) 11/15/20 09:28 Plt Count 400 X10*3/uL (160-400) 11/15/20 09:28 MPV 9.7 fL (9.4-12.3) 11/15/20 09:28 Immature Gran % (Auto) 2.6 % (0.0-0.4) H 11/14/20 05:43 Neut % (Auto) 86.8 % (45-73) H 11/14/20 05:43 Lymph % (Auto) 8.1 % (20-40) L 11/14/20 05:43 [place] % (Auto) 2.3 % (2-11) 11/14/20 05:43 Eos % (Auto) 0.0 % (0-4) 11/14/20 05:43 Baso % (Auto) 0.2 % (0-2) 11/14/20 05:43 Lymph # (Auto) 1.1 X10*3/uL (1.2-4.9) L 11/14/20 05:43 [place] # (Auto) 0.3 X10*3/uL (0.1-1.2) 11/14/20 05:43 Eos # (Auto) 0.0 X10*3/uL (0.0-0.4) 11/14/20 05:43 Baso # (Auto) 0.0 X10*3/uL (0.0-0.2) 11/14/20 05:43 Abs Immat Gran (auto) 0.35 X10*3/uL (0.00-0.03) H 11/14/20 05:43 Absolute Neuts (auto) 11.5 X10*3/uL (2.0-8.3) H 11/14/20 05:43 Absolute Nucleated RBC 0.000 X10*3/uL (0.0-0.012) 11/15/20 09:28 Nucleated RBC % (auto) 0.0 /100WBC (0.0-0.2) 11/15/20 09:28 D-Dimer < 200 NG/ML 11/13/20 20:29 O2 Saturation 96.0 % 11/13/20 19:44 ABG pH at Pt Temp 7.44 (7.35-7.45) 11/13/20 19:44 ABG pH (Temp Correct) 7.43 (7.35-7.45) 11/13/20 19:44 ABG pCO2 at Pt Temp 36 mmHg (32-45) 11/13/20 19:44 ABG pCO2 (Temp Corrct 37 mmHg (32-45) 11/13/20 19:44 ABG pO2 at Pt Temp 84 mmHg (83-108) 11/13/20 19:44 ABG pO2 (Temp Correct 87 (83-108) 11/13/20 19:44 ABG HCO3 25 mmol/L (22-26) 11/13/20 19:44 ABG Base Excess (Actual) 1.4 mmol/L 11/13/20 19:44 Sodium 139 mmol/L (135-145) 11/15/20 09:28 Potassium 4.8 mmol/L (3.3-5.1) 11/15/20 09:28 Chloride 105 mmol/L (96-108) 11/15/20 09:28 Carbon Dioxide 24 mmol/L (22-29) 11/15/20 09:28 Anion Gap 15 (12-20) 11/15/20 09:28 BUN 15 mg/dL (9-16) 11/15/20 09:28 Creatinine 0.72 mg/dL (0.5-1.4) 11/15/20 09:28 Estim Creat Clear Calc 83.7 11/15/20 09:28 Estimated GFR > 60 11/15/20 09:28 Random Glucose 173 mg/dL (60-115) H 11/15/20 09:28 Estimat Average Glucose 100 mg/dL 11/15/20 09:28 Hemoglobin A1c % 5.1 % 11/15/20 09:28 Lactic Acid 1.9 mmol/L (0.5-2.0) 11/14/20 05:43 Lactic Acid Fup @ 2Hr 2.2 mmol/L (0.5-2.0) H* 11/13/20 21:45 Lactic Acid Fup @ 4Hr 1.8 mmol/L (0.5-2.0) 11/14/20 00:14 Calcium 9.7 mg/dL (8.4-10.2) D 11/15/20 09:28 Total Bilirubin 0.2 mg/dL (0.0-1.0) 11/13/20 19:20 Direct Bilirubin < 0.2 mg/dL (0.0-0.5) 11/13/20 19:20 AST 15 U/L (5-31) 11/13/20 19:20 ALT 21 U/L (0-31) 11/13/20 19:20 Alkaline Phosphatase 115 U/L (39-117) 11/13/20 19:20 Troponin I High Sens < 3.5 ng/L (<3.5-17.0) 11/13/20 19:20 B-Natriuretic Peptide 16 pg/mL (<100) 11/13/20 19:20 Total Protein 6.6 g/dL (6.5-8.0) 11/13/20 19:20 Albumin 3.9 g/dL (3.5-5.0) 11/13/20 19:20 Lipase 48 U/L (8-78) 11/13/20 19:20 Urine Color YELLOW 11/13/20 20:53 Urine Appearance CLEAR 11/13/20 20:53 Urine pH 6.0 (5.0-8.0) 11/13/20 20:53 Ur Specific [place] 1.015 (1.005-1.025) 11/13/20 20:53 Urine Protein NEG MG/DL (NEG-TRACE) 11/13/20 20:53 Urine Glucose (UA) NEG MG/DL (NEG) 11/13/20 20:53 Urine Ketones NEG MG/DL (NEG) 11/13/20 20:53 Urine Blood NEG (NEG) 11/13/20 20:53 Urine Nitrite NEG (NEG) 11/13/20 20:53 Ur Leukocyte Esterase NEG (NEG) 11/13/20 20:53 COVID-19 (LYNDSAY) Negative (Negative) 11/13/20 19:20 COVID-19 Clin Com See Note 11/13/20 19:20 Impressions Chest X-Ray 11/13/20 18:55 IMPRESSION: Abnormal chest radiograph. No prior studies for comparison. Nonspecific pleural-based mass, asymmetric fullness of the left hilum and mild blunting of the left lateral CP angles are present within the left hemithorax, not optimally characterized. Chest CT 11/14/20 02:10 IMPRESSION: Calcified and noncalcified pleural plaques, most prominently along the left hemithorax. No parenchymal mass. Mild emphysema. Labs on day of discharge: Preliminary micro results at discharge 11/13/20 19:22 Blood Culture - Preliminary Blood - Venous No growth after 48 hours. 11/13/20 19:21 Blood Culture - Preliminary Blood - Venous No growth after 48 hours. Discharge Plan Discharge Patient Disposition: Home, Self-Care Discharge Diagnosis: asthma/COPD exacerbation Referrals: Dima Vincent PA [Physician [facility]] - 1 Week Magdiel Bush MD [Physician] - 2 Weeks Physician,Unknown [Primary Care Provider] - 1 Week Discharge Medications: New doxycycline hyclate 100 mg Tablet 100 mg PO Q12H Qty: 6 RF: 0 prednisone 10 mg tablet See Rx Instructions .ROUTE .COMPLEX Qty: 20 RF: 0 Continued fluoxetine 40 mg capsule 1 cap PO DAILY RF: 0 gabapentin 400 mg capsule 1 cap PO TID RF: 0 olanzapine 10 mg tablet 1 tab PO QAM RF: 0 omeprazole 20 mg capsule,delayed release(DR/EC) 1 cap PO DAILY RF: 0 fluoxetine 20 mg capsule 1 cap PO DAILY RF: 0 ibuprofen 800 mg tablet 1 tab PO Q8H RF: 0 hydroxyzine pamoate 50 mg capsule PO RF: 0 propranolol 10 mg tablet 1 tab PO BID RF: 0 mirtazapine 45 mg tablet 1 tab PO BEDTIME RF: 0 topiramate [Topamax] 50 mg tablet 1 tab PO DAILY RF: 0 meloxicam 15 mg tablet 1 tab PO DAILY RF: 0 folic acid 1 mg tablet 1 tab PO DAILY RF: 0 fluticasone propionate 50 mcg/actuation spray,suspension 1 spray intranasal DAILY RF: 0 budesonide-formoterol [Symbicort] 160-4.5 mcg/actuation HFA aerosol inhaler 1 puff PO BID RF: 0 vitamin B complex-vit B12 RF: 0 tizanidine 4 mg tablet 1 tab PO QID PRN (Reason: Muscle Spasm) RF: 0 nicotine 21 mg/24 hr patch 24 hour 1 patch topical DAILY RF: 0 lorazepam 1 mg Tablet 1 mg PO TID RF: 0 darifenacin 15 mg Tablet Extended Release 24 Hr PO RF: 0 ProAir HFA 90 mcg PO RF: 0 Trelegy Ellipta RF: 0 ipratropium-albuterol PO QID PRN (Reason: shortness of breath) RF: 0 Discharge Orders: Discharge Order (Routine); Ordered 11/16/20 Ordered By: Wilberto Weiss Diet: advance to usual diet Activity on Discharge: As tolerated Stand Alone Forms: Patient Portal Discharge page Care Plan Goals: improved breathing prevention of COPD/asthma flares + hospitalizations Health Concerns: COPD/asthma, tobacco abuse Plan of Treatment: take steroids as following: prednisone 40 mg (4 x 10 mg) daily x 3 days then prednisone 20 mg (2 x 10 mg) daily x 3 days then prednisone 10 mg (1 x 10 mg) daily x 3 days continue controller and rescue inhalers/nebulizers stop smoking- continue nicotine patch see your primary care doctor in 1 week Assessment: as above Patient Instructions: COPD (Chronic Obstructive Pulmonary Disease) (DC), Chronic Lung Disease and Infection Prevention (DC)
== END 2020-11-16 12:20 | disposition home or self-care (01) ==
LOC: HO.ED 21:23 → HO.IMC 23:29
PROVIDERS: Admitting Provider Internal Medicine; Emergency Provider Emergency Medicine; Visit Provider Family Medicine
DX: J44.1 Chronic obstructive pulmonary disease with (acute) exacerbation (principal); J45.901 Unspecified asthma with (acute) exacerbation; J44.9 Chronic obstructive pulmonary disease, unspecified; J92.9 Pleural plaque without asbestos; R91.8 Other nonspecific abnormal finding of lung field; E11.10 Type 2 diabetes mellitus with ketoacidosis without coma; D72.829 Elevated white blood cell count, unspecified; Z87.891 Personal history of nicotine dependence; Z20.822 Contact with and (suspected) exposure to COVID-19; Z79.51 Long term (current) use of inhaled steroids; Z79.899 Other long term (current) drug therapy
CPT/HCPCS: 36415; 71045; 71260; 80048; 80076; 81003; 82803; 83036; 83605; 83690; 83880; 84484; 85025; 85027; 85379; 87040; 87635; 93005; 94640; 94644; 96361; 96365; 96366; 96367; 96372; 96375; 96376; 97161; 99219; 99220; 99285; J0456; J0696; J1650; J2920; J2930; J3475; Q9967